=== PATIENT | male | born 1990 | race Caucasian/White ===

== ENCOUNTER 2018-03-29 18:30 | Emergency (ER) | payer OTHER, MEDICAID ==
[2018-03-29 18:36] VITALS: BP 111/66; PULSE 86; RESP 16; TEMP 98.7; O2SAT 97
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
== END 2018-03-29 23:08 | disposition home or self-care (01) ==
LOC: H.ER 18:30
DX: S99.921A Unspecified injury of right foot, initial encounter (principal); V03.09XA Pedestrian with other conveyance injured in collision with car, pick-up truck or van in nontraffic accident, initial encounter; Y92.410 Unspecified street and highway as the place of occurrence of the external cause